=== PATIENT | female | born 1990 | race Caucasian/White ===

== ENCOUNTER 2016-08-20 23:00 | Emergency (ER) | payer OTHER ==
--- NOTE | ~2016-08-20 | CR63 ---
[facility]. [facility] A Service of [facility] RADIOLOGY TEXT RESULTS PATIENT: NICOLAS ANTOINE LOCATION: SED : [birth year] UNIT #: [id number] AGE: [address]: DAVID EMERY PA-C SEX: F ORDER DR: [id number] [place] [id number] E MR#: [id number] Acc #: [id number] NAME: NICOLAS ANTOINE. : 1990 SEX: F STUDY DATE/TIME: 08/21/2016 1:01 UNIT: SED ROOM: STUDY DESCRIPTION: CR Chest 2 View Attending Physician: David Emery Pa-C Ordering Physician: Benton Burton M.D. MEDICAL IMAGING REPORT This report is preliminary unless electronic signature is present. EXAM PA and lateral chest Date 08/21/2016 at 01:01 HISTORY Possible allergic reaction, chest tightness and shortness of breath. Symptoms began 4 days ago. COMPARISON None. FINDINGS PA and lateral examination of the chest upright shows a good expansion of the parenchyma with a normal distribution of the pulmonary vascularity. There is no indication of congestion, effusion, infiltrate, tumor, or nodular density. The pleural reflections and diaphragmatic contours are normal. The cardiac silhouette and mediastinal anatomy is within normal limits. IMPRESSION Normal chest. Dictated by... Armida Jarrett M.D. THIS IS AN ELECTRONICALLY VERIFIED REPORT Armida Jarrett M.D. at 08/21/2016 10:02 PM PURVI/juana TD: 08/21/2016 07:32 JOB #: [id number] [facility] A Service [facility] RADIOLOGY TEXT RESULTS PATIENT: NICOLAS ANTOINE LOCATION: SED : 92 UNIT #: [id number] AGE: [address]: DAVID EMERY PA-C SEX: F ORDER DR: MEDICAL IMAGING REPORT
[2016-08-20] MEDS ORDERED: AMOXICILLIN PO (23:22)
== END 2016-08-21 01:58 | disposition home or self-care (01) ==
LOC: SED 23:00
DX: R05 Cough (principal); R06.02 Shortness of breath; T36.0X5A Adverse effect of penicillins, initial encounter; Z98.890 Other specified postprocedural states; Z88.0 Allergy status to penicillin; Z79.1 Long term (current) use of non-steroidal anti-inflammatories (NSAID); Y92.9 Unspecified place or not applicable
CPT/HCPCS: 71020; 94640; 99283; 99284